=== PATIENT | male | born 1950 | race Caucasian/White ===

== ENCOUNTER 2017-05-09 08:57 | Outpatient (CLI) | payer MEDICARE, OTHER ==
[2017-05-09 17:40] LABS: BILIRUBIN,URINE NEGATIVE (NEGATIVE)
[2017-05-09 17:56] LABS: WBC,URINE 0-3 /HPF (0-3)
[2017-05-09 18:02] LABS: ALBUMIN/GLOBULIN RATIO 1.6 (1.0-2.2); BILIRUBIN,TOTAL 0.6 mg/dL (0.2-1.0); BUN - BLOOD UREA NITROGEN 22 mg/dL (6-20); CALCIUM 9.8 mg/dL (8.5-10.3); CARBON DIOXIDE - CO2 24 mmol/L (21-32); CHLORIDE 106 mmol/L (101-111); CHOL/HDL RATIO 4.9 (<5.0); CHOLESTEROL 206 mg/dL; GFR - MDRD 75 (>89); GLUCOSE 103 mg/dL (70-100); HDL CHOLESTEROL 42 mg/dL; LDL/HDL RATIO 3.4 (<3.6); SODIUM 138 mmol/L (135-145); TOTAL PROTEIN 7.3 g/dL (6.7-8.2); TRIGLYCERIDES 115 mg/dL; VLDL CHOLESTEROL 23 mg/dL
[2017-05-09 18:40] LABS: HEMOGLOBIN A1C 0.64 g/dL
== END 2017-05-09 08:58 | disposition home or self-care (01) ==
LOC: LAB.F 08:57
PROVIDERS: ATTEND Family Medicine
DX: E78.5 Hyperlipidemia, unspecified (principal); R73.01 Impaired fasting glucose; I10 Essential (primary) hypertension; Z12.5 Encounter for screening for malignant neoplasm of prostate
CPT/HCPCS: 36415; 80053; 80061; 81001; 83036; 84443; G0103; 84153; 87086

== ENCOUNTER 2017-11-22 10:29 | Outpatient (CLI) | payer MEDICARE, OTHER ==
--- NOTE | 2017-11-22 11:34 | XRAY Report ---
Procedure Date: 11/22/2017 Accession Number: [id number] / [id number] Procedure: XRS - Knee 2 View RT CPT Code: FULL RESULT: EXAM: Knee 2 View RT DATE: 11/22/2017 10:39 AM CLINICAL HISTORY: KNEE PAIN, RIGHT COMPARISON: None. TECHNIQUE: 2 views. FINDINGS: Bones: No fractures or bone lesions. Joints: Suprapatellar effusion with possible loose body. Lateral knee joint space narrowing with spurring. Minimal spurring along the medial knee joint. Patellofemoral joint space narrowing and spurring. Soft Tissues: Mild soft tissue swelling. Vascular calcification. IMPRESSION: Moderate right knee degenerative changes most marked patellofemoral articulation and lateral knee joint associated with a joint effusion. Suprapatellar loose body not excluded. [facility]
== END 2017-11-22 10:30 | disposition home or self-care (01) ==
LOC: DI.S 10:29
PROVIDERS: ATTEND Family Medicine
DX: M17.11 Unilateral primary osteoarthritis, right knee (principal)

== ENCOUNTER 2017-11-29 12:23 | Outpatient (CLI) | payer MEDICARE, OTHER ==
--- NOTE | 2017-11-30 12:31 | MRI Report ---
Procedure Date: 11/29/2017 Accession Number: [id number] / [id number] Procedure: MRI - Knee RT W/O CPT Code: FULL RESULT: EXAM: RIGHT KNEE MRI WITHOUT CONTRAST EXAM DATE: 11/29/2017 01:33 PM. CLINICAL HISTORY: Right knee pain. Remote history of prior surgery. Swelling and tightness for 2 weeks. COMPARISON: None. TECHNIQUE: Multiplanar, multisequence T1-weighted and fluid-sensitive sequences of the knee without contrast. Other: None. FINDINGS: Cruciate ligaments: The posterior cruciate ligament appears intact. There is no intact anterior cruciate ligament present. Medial meniscus: Small amount of intrasubstance degeneration. No discrete tear identified. Lateral meniscus: Severe blunting and truncation throughout the majority of the body and posterior horn. Intrasubstance degeneration within the anterior horn. Collateral ligaments: The medial and fibular collateral ligaments appear intact. Bones and articular surfaces: Small joint effusion. Severe cartilage loss throughout the central and posterior aspect of the lateral compartment. Subchondral edema at the weight-bearing lateral compartment. Mild cartilage thinning, fissuring and irregularity in the patellofemoral and medial compartments. Tricompartmental marginal osteophytes. Possible 8 mm ossified body within the suprapatellar recess. Extensor mechanism: The patellar tendon and quadriceps insertion appear intact. IMPRESSION: 1. 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 2. Severe lateral compartment osteoarthritis. 3. Truncation and deficiency of the body and posterior horn lateral meniscus suggesting a previous partial resection. 4. Small joint effusion. [facility] MUSCULOSKELETAL RADIOLOGY SECTION
== END 2017-11-29 12:24 | disposition home or self-care (01) ==
LOC: DI 12:23
PROVIDERS: ATTEND Family Medicine
DX: M17.11 Unilateral primary osteoarthritis, right knee (principal); M23.8X1 Other internal derangements of right knee; M25.461 Effusion, right knee